=== PATIENT | female | born 1990 | race Caucasian/White ===

== ENCOUNTER 2019-01-02 09:23 | Emergency (ER) | payer MEDICAID ==
[2019-01-02] MEDS ORDERED: Sodium Chloride 0.9% 1,000 ML IV ONE (09:59)
--- NOTE | 2019-01-02 10:08 | ED Physician Chart ---
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 Allergies:: Allergies Allergy/AdvReac Type Severity Reaction Status Date / Time No Known Allergies Allergy Verified 01/02/19 09:36 Vitals:: Vital Signs - 8 hr 01/02/19 09:42 Temp 98.3 F HR 72 RR 16 BP 106/70 O2 Sat % 97 Historian:: Patient Review:: Nurse's Note Reviewed, Old Chart Reviewed ED Review of Systems - Review of Systems General/Constitutional: No fever, No chills, No weight loss, No weakness, No diaphoresis, No edema, No loss of appetite Skin: No skin lesions, No rash, No bruising Head: No headache, No light-headedness Eyes: No loss of vision, No pain, No diplopia ENT: No earache, No nasal drainage, No sore throat, No tinnitus Neck: No neck pain, No swelling, No thyromegaly, No stiffness, No mass noted Cardio Vascular: No chest pain, No palpitations, No PND, No orthopnea, No edema Pulmonary: No SOB, No cough, No sputum, No wheezing GI: Nausea, No vomiting, No diarrhea, Pain, No melena, No hematochezia, Constipation, No hematemesis G/U: No dysuria, No frequency, No hematuria, No nacturia [employer] Supervisor: No vaginal discharge, No abnormal vaginal bleed, No contraction Musculoskeletal: No bone or joint pain, No back pain, No muscle pain Endocrine: No polyuria, No polydipsia Psychiatric: No prior psych history, No depression, No anxiety, No suicidal ideation, No homicidal ideation, No auditory hallucination, No visual hallucination Hematopoietic: No bruising, No lymphadenopathy Allergic/Immuno: No urticaria, No angioedema Neurological: No syncope, No focal symptoms, No weakness, No paresthesia, No headache, No seizure, No dizziness, No confusion, No vertigo ED Past Medical History - Past Medical History Obtainable: Yes Past Medical History: No significant medical hx Family History: None Social History: Non Smoker, No Alcohol, No Drug Use, Single Surgical History: None Psychiatricy History: None Medication: Reviewed Family Medical History - Family Member Mother History Unknown: Yes Living Status: Still Living ED Physical Exam - Physical Examination General/Constitutional: Awake, Well-developed, well-nourished, Alert, No distress, GCS 15, Non-toxic appearing, Ambulatory Head: Atraumatic Eyes: Lids, conjuctiva normal, PERRL, EOMI Skin: Nl inspection, No rash, No skin lesions, No ecchymosis, Well hydrated, No lymphadenopathy ENMT: External ears, nose nl, TM canals nl, Nasal exam nl, Lips, teeth, gums nl , Oropharynx nl, Tonsils nl Neck: Nontender, Full ROM w/o pain, No JVD, No nuchal rigidity, No bruit, No mass, No stridor Other Neck comments:: supple; no meningeal signs; no cervical tenderness Respiratory: Nl effort/Exclusion, Clear to Auscultation, No Wheeze/Rhonchi/Rales Cardio Vascular: RRR, No murmur, gallop, rubs, NL S1 S2, Carotid/Femoral/Distal pulses equal bilaterally GI: No tenderness/rebounding/guarding, No organomegaly, No hernia, Normal BS's, Nondistended, No mass/bruits, No McBurney tenderness, Rectum exam nl Other GI comments:: no pulsatile masses; good BS : No CVA tenderness Other comments:: /Pelvic Exams: deferred by pt Extremities: No tenderness or effusion, Full ROM, normal strength in all extremities, No edema, Normal digits & nails Neuro/Psych: Alert/oriented, DTR's symmetric, Normal sensory exam, Normal motor strength, Judgement/insight normal, Mood normal, Normal gait, No focal deficits Other Neuro/Psych comments:: no focal signs Misc: Normal back, No paraspinal tenderness ED Labs/Radiology/EKG Results - Lab Results Comments:: Reviewed - Radiology Results Comments:: + Right Adnexal Cyst; Paraovarian Cyst; Stool-filled Ascending Colon; NAD - EKG Interpretations EKG Time:: 11:11 Rate & Rhythm: 58; SB Comments:: non-specific st-t changes ED Septic Shock - . Is Septic Shock (SBP<90, OR Lactate>4 mmol\L) present?: No - <6hrs of presentation: Vital Signs: Vital Signs - 8 hr 01/02/19 09:42 Temp 98.3 F HR 72 RR 16 BP 106/70 O2 Sat % 97 ED Reassessment (Disposition) - Reassessment Reassessment:: pt tolerated po fluids well in ER; pt is asymptomatic upon discharge Reassessment Condition:: Improved - Diagnosis Diagnosis:: Abdominal Pain; AGE; N/V/D/C; Gastritis; Constipation; IBS; Adnexal Cyst; Ovarian Cyst; Paraovarian Cyst - Aftercare/Follow up Instructions Aftercare/Follow-Up Instructions:: Counseled pt regarding lab results/diagnosis & need follow up, Refer to Discharge Instructions, Counseled pt & family regarding lab results/diagnosis & need follow up Medication Prescribed:: Rx: MOM 30cc po tid prn Constipation; High Fiber Diet; Clear Liquid Diet; Encourage Fluids - Patient Disposition Discharge/Transfer:: Home Condition at Disposition:: Stable, Improved (RTER prn if existing s/s reoccur and/or get worse and/or any other new s/s occur; X-Rays Instructions; ACIs given for all above Dx; Refer to [facility] HAND Specialist/GI Specialist/Labor Relations Representative HONG ; F/U with PMD in one day or prn; RTER prn if concerned)
[2019-01-02] MEDS ORDERED: Morphine Sulfate 2 mg/mL 1mL Syr IV STA (10:48)
[2019-01-02 10:52] LABS: ALB/GLOB RATIO 1.5 (1.0-1.8); ALKALINE PHOSPHATASE 43 U/L (34-104); AMYLASE SERUM 24 U/L (29-103); ANION GAP 10.8 (7.0-16.0); BILIRUBIN,TOTAL 1.5 mg/dL (0.3-1.0); BUN - UREA NITROGEN 13 mg/dL (7-25); CALCIUM SERUM 9.2 mg/dL (8.6-10.3); CARBON DIOXIDE 24.9 mEq/L (21.0-31.0); CHLORIDE 107 mEq/L (98-107); CREATININE - SERUM 0.6 mg/dL (0.6-1.2); GFR AFRICAN-AMERICAN > 60.0 ml/min (>90); GFR NON AFRICAN-AMERICAN > 60.0 ml/min; GLUCOSE 87 mg/dL (70-105); LIPASE 22 U/L (11-82); POTASSIUM SERUM 3.7 mEq/L (3.5-5.1); SGOT 11 U/L (13-39); SGPT/ALT 8 U/L (7-52); SODIUM SERUM 139 mEq/L (136-145); TOTAL PROTEIN,SERUM 6.7 gm/dL (6.0-8.3)
[2019-01-02] MEDS ORDERED: Morphine Sulfate 2 mg/mL 1mL Syr ONE ×2 (10:53→11:08)
[2019-01-02 11:15] LABS: URINE SOURCE CLEAN C
--- NOTE | 2019-01-02 11:17 | Diagnostic Imaging Report ---
CT scan abdomen and pelvis without intravenous contrast HISTORY: Pain Total DLP equals 364 CTDI equals 7.4 Axial sections were obtained from the xiphoid process down to the pubic symphysis. The liver exhibits a homogeneous parenchyma. No focal lesions. The spleen appears normal. No focal amenities seen within the pancreas. There is mild hyperdensity through the calyceal regions of both kidneys. No discrete calculi are seen. The appearance may be associated with changes of "medullary sponge kidneys". Clinical correlation needed. The exam of the pelvis demonstrates mild bilateral adnexal fullness with hypodensities. Changes most likely related to ovarian follicular changes. In addition, a 2.3 cm cyst is seen in the right adnexal area. This appears separate from the ovary. A pelvic ultrasound exam would provide additional detail and assessment. Mildly distended stool-filled ascending colon noted. No free fluid within the pelvis. IMPRESSION: 1. 2.3 cm right adnexal cyst. This appears to be separate from the ovary. Question paraovarian cyst. A pelvic ultrasound exam would provide for further assessment. Findings consistent with additional bilateral ovarian follicular changes also noted. 2. Mildly distended stool-filled ascending colon 3. Findings as described above that may be associated with changes of "medullary sponge kidneys". No discrete calculi or hydronephrosis is seen. Clinical correlation needed.
[2019-01-02 11:32] LABS: URINE BILIRUBIN SMALL (NEGATIVE); URINE BLOOD NEGATIVE (NEGATIVE); URINE GLUCOSE (UA) NEGATIVE (NEGATIVE); URINE KETONE 15 mg/dL (NEGATIVE); URINE LEUKOCYTE ESTERASE NEGATIVE (NEGATIVE); URINE MICROSCOPIC INDICATED? YES; URINE NITRATE NEGATIVE (NEGATIVE); URINE PROTEIN TRACE mg/dL (NEGATIVE); URINE UROBILINOGEN 0.2 E.U./dL (0.2 - 1.0)
[2019-01-02 11:44] LABS: URINE CLARITY HAZY (CLEAR); URINE COLOR YELLOW
[2019-01-02 11:46] LABS: URINE BACTERIA FEW /hpf (NONE SEEN); URINE EPITHELIAL CELLS MODERATE /lpf (FEW); URINE RBC 0-2 /hpf (0-5); URINE WBC 0-2 /hpf (0-5)
[2019-01-02 12:25] LABS: HEMATOCRIT 37.7 % (41.0-60); HEMOGLOBIN 12.6 gm/dL (12-16); MEAN CELL VOLUME 95.8 fl (81-100); MEAN CORPUSCULAR HEMOGLOBIN 31.9 pg (27.0-31.0); MEAN CORPUSCULAR HGB CONC 33.3 pg (28.0-36.0); RED BLOOD COUNT 3.94 Mil/cmm (3.80-5.10); RED CELL DISTRIBUTION WIDTH 13.2 % (11.5-20.0); WHITE BLOOD COUNT 4.6 Th/cmm (4.8-10.8)
[2019-01-02 12:26] LABS: MEAN PLATELET VOLUME 8.7 fl; PLATELET COUNT 198 Th/cmm (150-400)
[2019-01-02 12:27] LABS: % NEUTROPHILS 62.4 % (40.0-80.0)
[2019-01-02 12:28] LABS: BAND NEUTROPHILE 0 % (0-10); BASOPHIL 0.7 % (0-3); EOSINOPHIL 1.1 % (0-5); LYMPHOCYTE 26.7 % (20-50); MONOCYTE 9.1 % (2-10); NEUTROPHILS 62.4 % (40-80)
== END 2019-01-02 13:20 | disposition home or self-care (01) ==
LOC: ER 09:23
DX: K52.9 Noninfective gastroenteritis and colitis, unspecified (principal); K29.70 Gastritis, unspecified, without bleeding; N83.209 Unspecified ovarian cyst, unspecified side; N83.8 Other noninflammatory disorders of ovary, fallopian tube and broad ligament
CPT/HCPCS: 99284; 96374; 96375; 93005; 74176; 84484; 36415; 85007; 85025; 81001; 82150; 84703; 83690; 80053; J2270 ×2; J2405; J7030

== ENCOUNTER 2019-04-26 18:39 | Emergency (ER) | payer MEDICAID ==
--- NOTE | 2019-04-26 18:57 | ED Physician Chart ---
ED Chief Complaint/HPI - Patient Information Date Seen:: 04/26/19 Time Seen:: 18:45 Chief Complaint:: near syncope History of Present Illness:: After standing about 1 hour at work patient became dizzy, diaphoretic and nauseated. She sat down and did not lose consciousness. She became tremulous for a few seconds. Only recent illness is a sore throat last week which is now improved. Accu-Chek 180 in the field. Allergies:: Allergies Allergy/AdvReac Type Severity Reaction Status Date / Time No Known Allergies Allergy Verified 01/02/19 09:36 Historian:: Patient Review:: Nurse's Note Reviewed ED Review of Systems - Review of Systems General/Constitutional: No fever, No chills, Weakness, Diaphoresis Skin: No skin lesions Head: No headache Eyes: No loss of vision ENT: Sore throat Neck: No neck pain Cardio Vascular: No chest pain, No palpitations Pulmonary: No SOB GI: Nausea, No vomiting Musculoskeletal: No bone or joint pain Endocrine: No polyuria Psychiatric: No prior psych history Hematopoietic: No bruising Allergic/Immuno: No urticaria Neurological: Other (near-syncope) ED Past Medical History - Past Medical History Obtainable: Yes Past Medical History: Other (about one year had a syncopal episode where she fell to the ground) Family History: Diabetes Melitus, HTN Social History: Non Smoker, Alcohol, Other (occasional alcohol consumption) Surgical History: None Psychiatricy History: None Family Medical History - Family Member Mother History Unknown: Yes Living Status: Still Living ED Labs/Radiology/EKG Results - EKG Interpretations Rate & Rhythm: NSR with a rate of 82 Hobbs: normal ED Septic Shock - . Is Septic Shock (SBP<90, OR Lactate>4 mmol\L) present?: No ED Reassessment (Disposition) - Reassessment Reassessment Condition:: Improved - Diagnosis Diagnosis:: Vasovagal near syncope - Aftercare/Follow up Instructions Aftercare/Follow-Up Instructions:: Refer to Discharge Instructions - Patient Disposition Discharge/Transfer:: Home Condition at Disposition:: Stable, Improved
== END 2019-04-26 19:39 | disposition home or self-care (01) ==
LOC: ER 18:39
DX: R55 Syncope and collapse (principal)
CPT/HCPCS: 82948-90; 93005; Z7502